=== PATIENT | male | born 1975 | race African-American/Black ===

== ENCOUNTER 2016-11-24 15:48 | Emergency (ER) | payer SELFPAY ==
[2016-11-24 17:00] LABS: APPEARANCE,URINE CLEAR; BILIRUBIN,URINE NEGATIVE (NEGATIVE); GLUCOSE, URINE NEGATIVE (NEGATIVE); KETONES,URINE NEGATIVE (NEGATIVE); LEUKOCYTE ESTERASE,URINE NEGATIVE (NEGATIVE); NITRITE,URINE NEGATIVE (NEGATIVE); PROTEIN,URINE NEGATIVE (NEGATIVE); URINE SPECIFIC GRAVITY 1.017; UROBILINOGEN,URINE NEGATIVE mg/dL (<2.0)
[2016-11-24] MEDS ORDERED: LIDOCAINE 1% INJ-PF (10 MG/ML) 30 ML SDV INJ ONE (17:11)
[2016-11-24] MEDS ORDERED: CEFTRIAXONE INJ 250 MG VIAL IM ONE (17:11)
[2016-11-24] MEDS ORDERED: AZITHROMYCIN 250 MG TABLET PO ONE (17:11)
--- NOTE | 2016-11-24 17:13 | ER Document Report ---
ED GI/ - General Chief Complaint: Urinary Problem Stated Complaint: URINARY ISSUES Time Seen by Provider: 11/24/16 16:27 Mode of Arrival: Ambulatory Information source: Patient Notes: Patient is a 41-year-old male who presents to the ER today for burning with urination since yesterday with some clear discharge from the penis. Patient does not think he is worried about gonorrhea and chlamydia but is unsure. States he has been in a relationship for a year with one woman. States that he has not had any sexual encounters outside of that relationship. Denies any abdominal pain, fever, chills, low back pain. TRAVEL OUTSIDE OF THE [place] IN LAST 30 DAYS: No - Related Data Allergies/Adverse Reactions: No Known Allergies Allergy (Unverified 11/24/16 15:59) Past Medical History - General Information source: Patient - Social History Smoking Status: Never Smoker Chew tobacco use (# tins/day): No Frequency of alcohol use: Occasional Drug Abuse: None Family History: Reviewed & Not Pertinent Renal/ Medical History: Denies: Hx Peritoneal Dialysis Surgical Hx: Negative Review of Systems - Review of Systems Constitutional: No symptoms reported EENT: No symptoms reported Cardiovascular: No symptoms reported Respiratory: No symptoms reported Gastrointestinal: No symptoms reported Genitourinary: See HPI Male Genitourinary: No symptoms reported Musculoskeletal: No symptoms reported Skin: No symptoms reported Hematologic/Lymphatic: No symptoms reported Neurological/Psychological: No symptoms reported Physical Exam - Vital signs Vitals: Temp Pulse Resp BP Pulse Ox 97.8 F 46 L 18 132/83 H 98 11/24/16 15:59 11/24/16 15:59 11/24/16 15:59 11/24/16 15:59 11/24/16 15:59 - Notes Notes: PHYSICAL EXAMINATION: GENERAL: Well-appearing and in no acute distress. HEAD: Atraumatic, normocephalic. EYES: Pupils equal round and reactive to light, extraocular movements intact, sclera anicteric, conjunctiva are normal. NECK: Normal range of motion, supple without lymphadenopathy LUNGS: CTAB and equal. No wheezes rales or rhonchi. HEART: Regular rate and rhythm without murmurs ABDOMEN: Soft, no tenderness. No guarding, no rebound BACK: no vertebral tenderness, normal ROM GI/: no CVA tenderness EXTREMITIES: Normal range of motion, no pitting edema. No cyanosis. NEUROLOGICAL: Cranial nerves grossly intact. Normal sensory/motor exams. PSYCH: Normal mood, normal affect. SKIN: Warm, Dry, normal turgor, no rashes or lesions noted Course - Re-evaluation Re-evalutation: 11/24/16 17:13 Urinalysis is clear today. Patient does not want to wait on gonorrhea and Chlamydia testing as it takes 90 minutes. He does want the treatment just in case. He did get IM Rocephin and azithromycin here. - Vital Signs Vital signs: Temp Pulse Resp BP Pulse Ox 97.8 F 46 L 18 132/83 H 98 11/24/16 15:59 11/24/16 15:59 11/24/16 15:59 11/24/16 15:59 11/24/16 15:59 - Laboratory Laboratory results interpreted by me: 11/24/16 16:40 Urine Ascorbic Acid 40 H Discharge - Discharge Clinical Impression: Burning with urination Condition: Stable Disposition: HOME, SELF-CARE Additional Instructions: Return immediately for any new or worsening symptoms. Follow up with primary care provider, call tomorrow to make followup appointment.
[2016-11-24 17:57] VITALS: BP 129/79
[2016-11-24 19:31] LABS: CHLAM PCR NOT DETECTED (NOT DETECT)
== END 2016-11-24 17:54 | disposition home or self-care (01) ==
LOC: ER 15:48
DX: R30.0 Dysuria (principal); R36.9 Urethral discharge, unspecified
CPT/HCPCS: 99285; 96372; 81001; 87491; 87591; J3490; J0696

== ENCOUNTER 2017-04-19 18:35 | Emergency (ER) | payer SELFPAY ==
[2017-04-19] MEDS ORDERED: IBUPROFEN 800 MG TABLET PO ONE (19:35)
--- NOTE | 2017-04-19 19:35 | ER Document Report ---
HPI - HPI Pain Level: 4 Context: Patient is a 42-year-old male presents emergency department with a chief complaint of flu symptoms since last evening. Patient states that his 3-year- old was treated for flu recently. He admits to headache, nausea, sinus congestion and body aches. Patient states his been able to tolerate p.o. without any difficulty. Denies any recent fevers. - REPRODUCTIVE Reproductive: DENIES: : Past Medical History - Social History Smoking Status: Never Smoker Family History: Reviewed & Not Pertinent Renal/ Medical History: Denies: Hx Peritoneal Dialysis Vertical Provider Document - CONSTITUTIONAL Agree With Documented VS: Yes Notes: PHYSICAL EXAM GENERAL: Alert, interacts well. HEENT: NCAT, pale conjunctiva, extraocular movements intact, pupils PERRL. external ear normal, no evidence of external auditory canal tenderness, blood/ drainage, cerumen impaction, TM intact without evidence of effusion, bulging, injection, MMM, Uvula midline. Airway patent. No evidence of tonsillar enlargement, peritonsillar abscess, retropharyngeal abscess. LUNGS: Clear to auscultation bilaterally, no wheezes, rales, or rhonchi. No respiratory distress. HEART: Regular rate and rhythm. No murmurs, gallops, or rubs. ABDOMEN: Soft, nondistended, nontender. No guarding, rebound, or rigidity.. Bowel sounds present in all 4 quadrants. EXTREMITIES: Moves all 4 extremities spontaneously. No edema, radial and dorsalis pedis pulses 2/4 bilaterally. No cyanosis. NEUROLOGICAL: Alert and oriented x4. Normal speech. PSYCH: Normal affect, normal mood. SKIN: Warm, dry, normal turgor. No rashes or lesions noted. - INFECTION CONTROL TRAVEL OUTSIDE OF THE [place] IN LAST 30 DAYS: No - RESPIRATORY O2 Sat by Pulse Oximetry: 97 Course - Re-evaluation Re-evalutation: 04/19/17 20:40 Patient presents with cough, diarrhea, and fever at home consistent with a diagnosis of influenza. Influenza testing is positive. Patient is overall well in appearance, in no acute distress. Lung sounds clear. Able to tolerate oral intake without difficulty here in the emergency department. After risks and benefits conversation with the patient regarding the use of Tamiflu, they have elected to use supportive care without Tamiflu based on concerns about lack of efficacy as well as the side effect profile. At this time will discharge with return precautions and follow-up recommendations. Verbal discharge instructions given a the bedside and opportunity for questions given. Medication warnings reviewed. Patient is in agreement with this plan and has verbalized understanding of return precautions and the need for primary care follow-up in the next 24-72 hours. - Vital Signs Vital signs: Temp Pulse Resp BP Pulse Ox 99.4 F 93 17 120/84 97 04/19/17 18:54 04/19/17 18:54 04/19/17 18:54 04/19/17 18:54 04/19/17 18:54 Discharge - Discharge Clinical Impression: Influenza Condition: Good Disposition: HOME, SELF-CARE Additional Instructions: You have influenza. There is no treatment that is effective for this diagnosis other than supportive care at home. This includes drinking plenty of fluids, using Tylenol or ibuprofen as needed for fever and discomfort, and Zofran as needed for nausea and vomiting. Please follow closely with you primary care physician the next 1-2 days regarding this diagnosis. Return to the emergency department immediately if you began to have persistent vomiting prevents you from being able to keep fluids down for more than 12 hours, you pass out, you began having difficulty breathing, you become confused, or you have any other symptoms that are worrisome to you. Prescriptions: Ondansetron HCl [Zofran] 4 mg PO Q4HP PRN #10 tablet PRN Reason: Forms: Return to Work Referrals: SYLVIA LAUREN MD [ACTIVE STAFF] - Follow up in 1 week
[2017-04-19 20:31] LABS: A TYPE INFLUENZA AG POSITIVE (NEGATIVE); B INFLUENZA AG POSITIVE (NEGATIVE)
[2017-04-19 21:01] VITALS: BP 117/76
== END 2017-04-19 20:40 | disposition home or self-care (01) ==
LOC: ER 18:35
DX: J11.1 Influenza due to unidentified influenza virus with other respiratory manifestations (principal); R51 Headache; R11.0 Nausea; R09.81 Nasal congestion; M79.1 Myalgia
CPT/HCPCS: 87804; 99283

== ENCOUNTER 2017-10-14 14:32 | Emergency (ER) | payer SELFPAY ==
--- NOTE | 2017-10-14 14:57 | ER Document Report ---
ED GI/ - General Chief Complaint: Flank Pain Stated Complaint: LEFT LOW BACK PAIN Time Seen by Provider: 10/14/17 14:54 Mode of Arrival: Ambulatory Information source: Patient Notes: Chief complaint: Left flank pain History of complain:( obtained from----patient) 42 years old male presents today with left flank pain as well as left lower quadrant abdominal pain with a history of not having bowel movement for more than 2 days. Came on yesterday morning. No radiation. Not associated with any nausea vomiting dysuria frequency urgency. Denies any injuries. Denies any radiation down the leg numbness tingling sensation over the lower extremity. Denies any other constitutional symptoms Onset: As above gradual Duration: Last 2 days Severity: Mild to moderate Quality:dull Context: Unknown Exacerbating factor and relieving factors: None REVIEW OF SYSTEMS: CONSTITUTIONAL : Denies fever, chills, or sweats. Denies recent illness. EENT: Denies eye, ear, throat, or mouth pain or symptoms. Denies nasal or sinus congestion or discharge. Denies throat, tongue, or mouth swelling or difficulty swallowing. CARDIOVASCULAR: Denies chest pain. Denies palpitations or racing or irregular heart beat. Denies ankle edema. RESPIRATORY: Denies cough, cold, or chest congestion. Denies shortness of breath, difficulty breathing, or wheezing. GASTROINTESTINAL: Denies distention. Denies nausea, vomiting, or diarrhea. Denies blood in vomitus, stools, or per rectum. Denies black, tarry stools. Denies constipation. GENITOURINARY: Denies difficulty urinating, painful urination, burning, frequency, blood in urine, or discharge. FEMALE GENITOURINARY: Denies vaginal bleeding, heavy or abnormal periods, irregular periods. Denies vaginal discharge or odor. MUSCULOSKELETAL: Denies back or neck pain or stiffness. Denies joint pain or swelling. SKIN: Denies rash, lesions or sores. HEMATOLOGIC : Denies easy bruising or bleeding. LYMPHATIC: Denies swollen, enlarged glands. NEUROLOGICAL: Denies confusion or altered mental status. Denies passing out or loss of consciousness. Denies dizziness or lightheadedness. Denies headache. Denies weakness or paralysis or loss of use of either side. Denies problems with gait or speech. Denies sensory loss, numbness, or tingling. Denies seizures. PSYCHIATRIC: Denies anxiety or stress. Denies depression, suicidal ideation, or homicidal ideation. ALL OTHER SYSTEMS REVIEWED AND NEGATIVE. PHYSICAL EXAMINATION: GENERAL: Well-appearing, well-nourished and in no acute distress. HEAD: Atraumatic, normocephalic. EYES: Pupils equal round and reactive to light, extraocular movements intact, conjunctiva are normal. ENT: Nares patent, oropharynx clear without exudates. Moist mucous membranes. NECK: Normal range of motion, supple without lymphadenopathy LUNGS: Breath sounds clear to auscultation bilaterally and equal. No wheezes rales or rhonchi. HEART: Regular rate and rhythm without murmurs ABDOMEN: Soft, nontender, nondistended abdomen. No guarding, no rebound. No masses appreciated. Examination of genitals-deferred Musculoskeletal: Normal range of motion, no pitting or edema. No cyanosis. NEUROLOGICAL: Cranial nerves grossly intact. Normal speech, normal gait. Normal sensory, motor exams PSYCH: Normal mood, normal affect. SKIN: Warm, Dry, normal turgor, no rashes or lesions noted. Dictation was performed using [employer] voice recognition software TRAVEL OUTSIDE OF THE [place] IN LAST 30 DAYS: No - HPI Notes: 10/14/17 14:58 Dictated - Related Data Allergies/Adverse Reactions: No Known Allergies Allergy (Verified 10/14/17 14:33) Past Medical History - Social History Smoking Status: Never Smoker Chew tobacco use (# tins/day): No Frequency of alcohol use: None Drug Abuse: None Family History: Reviewed & Not Pertinent Patient has suicidal ideation: No Patient has homicidal ideation: No Renal/ Medical History: Denies: Hx Peritoneal Dialysis Review of Systems - Review of Systems Notes: Dictated Physical Exam - Vital signs Vitals: Temp Pulse Resp BP Pulse Ox 98.4 F 50 L 14 115/65 99 10/14/17 14:44 10/14/17 14:44 10/14/17 14:44 10/14/17 14:44 10/14/17 14:44 - Notes Notes: Dictated Course - Re-evaluation Re-evalutation: 10/14/17 14:58 Dictated - Vital Signs Vital signs: Temp Pulse Resp BP Pulse Ox 98.4 F 50 L 14 115/65 99 10/14/17 14:44 10/14/17 14:44 10/14/17 14:44 10/14/17 14:44 10/14/17 14:44 - Laboratory Laboratory results interpreted by me: 10/14/17 15:05 Urine Protein 30 H Urine Blood LARGE H Urine Urobilinogen 2.0 H Ur Leukocyte Esterase TRACE H - Diagnostic Test Radiology reviewed: Image reviewed, Reports reviewed - Radiology report KUB as normal. Radiology results interpreted by me: 10/14/17 16:22 Noted large amount of fecal material in the x-ray Discharge - Discharge Clinical Impression: Constipation by delayed colonic transit UTI (urinary tract infection) Qualifiers: Urinary tract infection type: acute cystitis Hematuria presence: without hematuria Qualified Code(s): N30.00 - Acute cystitis without hematuria Condition: Fair Disposition: HOME, SELF-CARE Instructions: Urinary Tract Infection ([facility]), Constipation ([facility]) Prescriptions: Ketorolac Tromethamine [Toradol 10 mg Tablet] 10 mg PO Q6HP PRN #14 tablet PRN Reason: Doxycycline Hyclate 100 mg PO BID #14 capsule Lactulose [Cephulac Syrup 20 gm/30 ml Udcup] 20 gm PO BID #120 udc
[2017-10-14 15:21] LABS: APPEARANCE,URINE CLEAR; BILIRUBIN,URINE NEGATIVE (NEGATIVE); COLOR,URINE YELLOW; GLUCOSE, URINE NEGATIVE (NEGATIVE); KETONES,URINE NEGATIVE (NEGATIVE); LEUKOCYTE ESTERASE,URINE TRACE (NEGATIVE); NITRITE,URINE NEGATIVE (NEGATIVE); PROTEIN,URINE 30 mg/dL (NEGATIVE)
--- NOTE | 2017-10-14 15:29 | RADIOLOGY REPORT (SQ) ---
EXAM DESCRIPTION: KUB/ABDOMEN (SINGLE VIEW) COMPLETED DATE/TIME: 10/14/2017 3:20 pm REASON FOR STUDY: Abdominal pain abdominal pain COMPARISON: None. NUMBER OF VIEWS: One view. TECHNIQUE: Supine radiographic image of the abdomen acquired. LIMITATIONS: None. FINDINGS: BOWEL GAS PATTERN: Normal bowel gas pattern. No dilated loops. CALCIFICATIONS: No suspicious calcifications. SOFT TISSUES: No gross mass or suggestion of organomegaly. HARDWARE: None in the abdomen. BONES: No acute fracture. No worrisome bone lesions. OTHER: No other significant finding. IMPRESSION: NO RADIOGRAPHIC EVIDENCE FOR ACUTE ABDOMINAL DISEASE. TECHNICAL DOCUMENTATION: JOB ID: [id number] [employer]- All Rights Reserved Reading location - IP/workstation name: [email or web address]
[2017-10-14 16:48] VITALS: BP 125/71
[2017-10-14 16:59] LABS: URINE AMPHETAMINES SCREEN NEGATIVE; URINE BARBITURATES SCREEN NEGATIVE; URINE BENZODIAZEPINES SCREEN NEGATIVE; URINE COCAINE SCREEN UNCONFIRMED POSITIVE; URINE MARIJUANA (THC) SCREEN NEGATIVE; URINE METHADONE SCREEN NEGATIVE; URINE PHENCYCLIDINE SCREEN NEGATIVE
== END 2017-10-14 16:50 | disposition home or self-care (01) ==
LOC: ER 14:32
DX: K59.01 Slow transit constipation (principal); N30.00 Acute cystitis without hematuria
CPT/HCPCS: 74018; 80307; 81001; 99284

== ENCOUNTER 2019-01-31 20:25 | Emergency (ER) | payer SELFPAY ==
[2019-01-31] MEDS ORDERED: METOCLOPRAMIDE HCL INJ/PF 10 MG/2 ML SDV IV ONE (21:14)
[2019-01-31] MEDS ORDERED: NORMAL SALINE 1000 ML 1,000 ML IV ONE (21:14)
[2019-01-31] MEDS ORDERED: DIPHENHYDRAMINE HCL 50 MG/ML VIAL IV ONE (21:14)
[2019-01-31] MEDS ORDERED: KETOROLAC TROMETHAMINE INJ/PF 30 MG/1 ML SDV IV ONE (21:14)
--- NOTE | 2019-01-31 23:27 | ER Document Report ---
ED General - General Chief Complaint: Headache Stated Complaint: HEADACHE Time Seen by Provider: 01/31/19 20:32 TRAVEL OUTSIDE OF THE [place] IN LAST 30 DAYS: No - HPI Notes: Patient is a 44-year-old male with a history of migraine headaches who presents to the emergency department for evaluation of a headache. He states that is been going on for several hours. It starts in the back of his neck and goes up behind his eyes. He states that he has been getting migraines like this for some time, they just seem more frequent as of late. He does admit he has been under a significant amount of stress. He has photophobia. He has nausea but no emesis. No difficulty seeing, speaking and swallowing. Moving his arms and legs without difficulty. No fevers. - Related Data Allergies/Adverse Reactions: No Known Allergies Allergy (Verified 10/14/17 14:33) Past Medical History - General Information source: Patient - Social History Smoking Status: Never Smoker Family History: Reviewed & Not Pertinent Patient has suicidal ideation: No Patient has homicidal ideation: No Neurological Medical History: Reports: Hx Migraine Renal/ Medical History: Denies: Hx Peritoneal Dialysis Review of Systems - Review of Systems Constitutional: No symptoms reported EENT: No symptoms reported Cardiovascular: No symptoms reported Respiratory: No symptoms reported Gastrointestinal: See HPI Genitourinary: No symptoms reported Musculoskeletal: See HPI Skin: No symptoms reported Neurological/Psychological: See HPI Physical Exam - Vital signs Vitals: Temp Pulse BP Pulse Ox 98.1 F 57 L 113/79 100 01/31/19 20:29 01/31/19 20:29 01/31/19 20:29 01/31/19 20:29 - Notes Notes: Vital signs reviewed, please refer to chart. Head is normocephalic, atraumatic. Pupils equal round, reactive to light. Neck is supple without meningismus. He does have some tenderness to palpation at the base of the occiput with associated tension. Heart is regular rate and rhythm. Lungs are clear to auscultation bilaterally. Abdomen is soft, nontender, normoactive bowel sounds throughout. Extremities without cyanosis, clubbing. Posterior calves are nontender. Peripheral pulses are equal. Skin is warm and dry. Patient is awake, alert, oriented x3. Cranial nerves II - XII are grossly intact without focal neurological deficits. Strength is plus 5 out of 5 bilateral upper and lower extremities. Sensation is intact. Reflexes symmetrical. Intact [id number], rapid alternating movements, [id number]. Course - Re-evaluation Re-evalutation: 01/31/19 23:25 Patient presents emergency department for evaluation. He has a headache. It was not a thunderclap onset, is typical of his normal migraines, they have just been more frequent. He has significant relief with Toradol, Reglan, Benadryl, IV fluids. My suspicion is that some of this is muscular tension. I will send him home with prescription for Robaxin. He is to follow-up with his primary care provider next week, return to the ED with worsening or new concerning symptoms of any sort. - Vital Signs Vital signs: Temp Pulse Resp BP Pulse Ox 98.1 F 57 L 113/79 100 01/31/19 20:29 01/31/19 20:29 01/31/19 20:29 01/31/19 20:29 Discharge - Discharge Clinical Impression: Tension headache Migraine Qualifiers: Migraine type: without aura Status migrainosus presence: with status migrainosus Intractability: not intractable Qualified Code(s): G43.001 - Mi graine without aura, not intractable, with status migrainosus Condition: Stable Disposition: HOME, SELF-CARE Instructions: Antinausea Medication ([facility]), Headache ([facility]), Toradol Injection ([facility]) Additional Instructions: Rest, stay well-hydrated. Take muscle relaxer as needed for the neck pain and t ension aspects of your headaches. Follow-up with your primary care provider next week. Return to the emergency department with worsening or new concerning symptoms of any sort.
[2019-01-31 23:39] VITALS: BP 116/62
== END 2019-01-31 23:39 | disposition home or self-care (01) ==
LOC: ER 20:25
DX: G44.209 Tension-type headache, unspecified, not intractable (principal); G43.001 Migraine without aura, not intractable, with status migrainosus
CPT/HCPCS: J1200; J1885; J2765; J7030

== ENCOUNTER 2020-01-11 14:02 | Emergency (ER) | payer SELFPAY ==
[2020-01-11 15:05] VITALS: BP 127/80
[2020-01-11] MEDS ORDERED: AZITHROMYCIN 250 MG TABLET PO ONE (15:26)
[2020-01-11] MEDS ORDERED: LIDOCAINE 1% INJ-PF (10 MG/ML) 30 ML SDV INJ ONE (15:26)
[2020-01-11] MEDS ORDERED: CEFTRIAXONE INJ 250 MG VIAL IM ONE (15:26)
--- NOTE | 2020-01-11 15:30 | ER Document Report ---
HPI - HPI Time Seen by Provider: 01/11/20 15:23 Context: Patient is a 46-year-old male who presents emergency department with a chief complaint of penile discharge. Patient reports this morning noticing a discolored discharge from the penis. Denies testicular pain or swelling. Did have unprotected sexual intercourse 2 days ago. Does have a history of gonorrhea and thinks that this is the same thing. Denies burning with urination. - REPRODUCTIVE Reproductive: DENIES: : Past Medical History - General Information source: Patient - Social History Smoking Status: Unknown if Ever Smoked Lives with: Family Family History: Reviewed & Not Pertinent - Past Medical History Cardiac Medical History: Reports: None Pulmonary Medical History: Reports: None EENT Medical History: Reports: None Neurological Medical History: Reports: Hx Migraine Endocrine Medical History: Reports: None Renal/ Medical History: Reports: None. Denies: Hx Peritoneal Dialysis Malignancy Medical History: Reports None GI Medical History: Reports: None Musculoskeletal Medical History: Reports None Skin Medical History: Reports None Psychiatric Medical History: Reports: None Traumatic Medical History: Reports: None Infectious Medical History: Reports: None Surgical Hx: Negative Vertical Provider Document - CONSTITUTIONAL Agree With Documented VS: Yes Exam Limitations: No Limitations General Appearance: No Apparent Distress - INFECTION CONTROL TRAVEL OUTSIDE OF THE [place] IN LAST 30 DAYS: No - HEENT HEENT: Atraumatic, Normal ENT Exam, Normocephalic, PERRLA - RESPIRATORY Respiratory: Breath Sounds Normal, No Respiratory Distress - CARDIOVASCULAR Cardiovascular: Regular Rate, Regular Rhythm - GI/ABDOMEN Gastrointestinal: Abdomen Soft, Abdomen Non-Tender, Normal Bowel Sounds - MUSCULOSKELETAL/EXTREMETIES Musculoskeletal/Extremeties: FROM - NEURO Level of Consciousness: Awake, Alert - DERM Integumentary: Warm, Dry, No Rash Course - Re-evaluation Re-evalutation: 01/11/20 20:33 Gonorrhea results not present while the patient was here in the emergency department, although the patient was prophylactically treated for this. I did attempt to call the patient x1 with no answer to inform him of the results. Prior to testing I did inform the patient that he needs to abstain from sexual intercourse for 14 days after treatment. It would be may to get retested to make sure the infection is gone if he turns out to be positive. Patient verbal ized understanding. Did inform the patient he needs to contact his partner to let them know as well. - Vital Signs Vital signs: Temp Pulse Resp BP Pulse Ox 98.3 F 49 L 16 127/80 H 97 01/11/20 15:02 01/11/20 15:02 01/11/20 15:02 01/11/20 15:02 01/11/20 15:02 - Laboratory Laboratory results interpreted by me: 01/11/20 20:05 Laboratory 01/11/20 01/11/20 15:35 15:35 Urine Color YELLOW Urine Appearance CLOUDY Urine pH 7.0 Ur Specific [place] 1.021 Urine Protein 30 H Urine Glucose (UA) NEGATIVE Urine Ketones NEGATIVE Urine Blood SMALL H Urine Nitrite NEGATIVE Urine Bilirubin NEGATIVE Urine Urobilinogen 2.0 H Ur Leukocyte Esterase NEGATIVE Urine WBC (Auto) 5 Urine RBC (Auto) 13 Urine Bacteria (Auto) TRACE Amorphous Sediment Auto TRACE Urine Mucus (Auto) OCC Urine Ascorbic Acid NEGATIVE Chlamydia DNA (PCR) NOT DETECTED N.gonorrhoeae DNA (PCR) DETECTED H Patient's urinalysis was unremarkable. Patient was positive for gonorrhea. Discharge - Discharge Clinical Impression: Penile discharge Condition: Stable Disposition: HOME, SELF-CARE Additional Instructions: *Today are seen in the emergency department for penile discharge. We did prophylactically treat you for gonorrhea and chlamydia. Do refrain from sexual intercourse until your test has resulted. Please return if symptoms worsen or change such as difficulty urinating, testicular pain or swelling.
[2020-01-11 16:34] LABS: AMORPHOUS SEDIMENT,URINE TRACE /HPF; APPEARANCE,URINE CLOUDY; BILIRUBIN,URINE NEGATIVE (NEGATIVE); COLOR,URINE YELLOW; GLUCOSE, URINE NEGATIVE (NEGATIVE); KETONES,URINE NEGATIVE (NEGATIVE); LEUKOCYTE ESTERASE,URINE NEGATIVE (NEGATIVE); NITRITE,URINE NEGATIVE (NEGATIVE); PROTEIN,URINE 30 mg/dL (NEGATIVE); URINE SPECIFIC GRAVITY 1.021
[2020-01-11 18:05] LABS: CHLAM PCR NOT DETECTED (NOT DETECT)
== END 2020-01-11 17:39 | disposition home or self-care (01) ==
LOC: ER 14:02
DX: A54.9 Gonococcal infection, unspecified (principal); R36.9 Urethral discharge, unspecified
CPT/HCPCS: 99284; 96372; 81001; 87491; 87591; J3490; J0696